=== PATIENT | female | born 1985 | race Caucasian/White ===

== ENCOUNTER 2023-10-18 08:25 | Emergency (ER) | payer OTHER, SELFPAY ==
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
[2023-10-18 08:38] VITALS: BP 116/64; PULSE 78; RESP 18; TEMP 36.8; O2SAT 100; BMI 22.5
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
[2023-10-18] MEDS: Acetaminophen 325 MG TABLET 975 MG PO (10:23)
[2023-10-18] MEDS: 0.9 % Sodium Chloride 1,000 ML 999 ML IV (10:23)
[2023-10-18 10:50] LABS: MANUAL DIFF FLAG NO
[2023-10-18 10:58] LABS: Basophils Percent Auto 0.4 % (0-2); Eosinophils Absolute Auto 0.2 X10*3/uL (0.0-0.4); Eosinophils Percent Auto 2.2 % (0-4); Hematocrit 34.5 % (37.0-47.0); Hemoglobin 11.7 g/dl (12.0-16.0); Imm Gran Abs Auto 0.02 X10*3/uL (0.00-0.03); Imm Gran Pct Auto 0.3 % (0.0-0.4); Lymphocytes Absolute Auto 0.7 X10*3/uL (1.2-4.9); Lymphocytes Percent Auto 10.3 % (20-40); Mean Corpuscular HGB Conc 33.9 g/dl (31.0-35.0); Mean Corpuscular Hemoglobin 30.7 pg (27.0-33.0); Mean Corpuscular Volume 90.6 fL (80.0-98.0); Mean Platelet Volume 10.6 fL (9.4-12.3); Monocytes Absolute Auto 0.6 X10*3/uL (0.1-1.2); Monocytes Percent Auto 8.2 % (2-11); Neutrophils Absolute Auto 5.4 x10*3/uL (2.0-8.3); Neutrophils Percent Auto 78.6 % (45-73); Platelet Count 273 X10*3/uL (160-400); Red Blood Count 3.81 X10*6/uL (4.20-5.50); Red Cell Distribution Width 13.2 % (11.0-16.0); White Blood Count 6.9 X10*3/uL (4.8-10.8)
[2023-10-18 10:59] LABS: Prothrombin Time 11.8 SEC (11.1-13.3)
[2023-10-18 11:01] LABS: Partial Thromboplastin Time 31.9 SEC (26.0-36.8)
[2023-10-18 11:24] LABS: Alanine Aminotransferase 11 U/L (0-31); Alkaline Phosphatase 42 U/L (39-117); Anion Gap 9 (12-20); Aspartate Amino Transferase 12 U/L (5-31); Bilirubin Total 0.3 mg/dL (0.0-1.0); Blood Urea Nitrogen 14 mg/dL (9-16); Calcium 9.2 mg/dL (8.4-10.2); Carbon Dioxide 26 mmol/L (22-29); Chloride 109 mmol/L (96-108); Estimated Glomerular Filt Rate > 60; Glucose Random 101 mg/dL (60-115); HCG Quantitative < 2 mIU/mL; Potassium 4.2 mmol/L (3.3-5.1); Sodium 140 mmol/L (135-145); Total Protein 7.2 g/dL (6.5-8.0)
[2023-10-18] MEDS: LORazepam 1 MG TABLET 2 MG PO (11:33)
[2023-10-18] MEDS: iohexoL 350 MG/ML 100 ML INFUS..BTL IV (11:53)
[2023-10-18 18:11] VITALS: BP 97/63; PULSE 56; RESP 18; TEMP 37.3; O2SAT 99
[2023-10-18 19:32] VITALS: BP 97/63; PULSE 56; RESP 18; TEMP 37.3; O2SAT 99
== END 2023-10-18 19:32 | disposition left against medical advice (07) ==
PROVIDERS: Physician Assistant; Emergency Provider Emergency Medicine; PCP Internal Medicine
DX: S13.4XXA Sprain of ligaments of cervical spine, initial encounter (principal); M54.2 Cervicalgia; R51.9 Headache, unspecified; R07.89 Other chest pain; R10.2 Pelvic and perineal pain; V43.52XA Car driver injured in collision with other type car in traffic accident, initial encounter; Y93.9 Activity, unspecified; Y92.410 Unspecified street and highway as the place of occurrence of the external cause; Y99.8 Other external cause status; Z79.899 Other long term (current) drug therapy
CPT/HCPCS: 36415; 70496; 70498; 71260; 74177; 80053; 84702; 85025; 85610; 85730; 96360; 99284; Q9967